=== PATIENT | female | born 1965 | race African-American/Black ===

== ENCOUNTER 2018-06-03 23:30 | Emergency (ER) | payer BC, OTHER ==
[~2018-06-03] VITALS: Ht 175.3 cm; Wt 132.0 kg
[2018-06-04] MEDS ORDERED: HYDROCODONE/ACETAMINOPHEN 5/325MG TABLET PO ONE (00:30)
[2018-06-04 02:13] VITALS: BP 124/68
== END 2018-06-04 02:25 | disposition home or self-care (01) ==
LOC: ER 06-04 01:09
DX: T14.8XXA Other injury of unspecified body region, initial encounter (principal); M25.462 Effusion, left knee; M54.2 Cervicalgia; M54.89 Other dorsalgia; E85.9 Amyloidosis, unspecified; M76.9 Unspecified enthesopathy, lower limb, excluding foot; Z98.890 Other specified postprocedural states; V43.52XA Car driver injured in collision with other type car in traffic accident, initial encounter; Y93.89 Activity, other specified; Y92.488 Other paved roadways as the place of occurrence of the external cause
CPT/HCPCS: 73562; 99284; Z7610